=== PATIENT | female | born 1995 | race Caucasian/White ===

== ENCOUNTER 2017-03-16 09:21 | Emergency (ER) | payer BC ==
[2017-03-16 09:40] VITALS: BP 117/71; BMI 29.7
[2017-03-16 10:03] LABS: BILIRUBIN,URINE NEGATIVE (NEGATIVE); BLOOD/HEMOGLOBIN,URINE NEGATIVE (NEGATIVE); GLUCOSE, URINE NEGATIVE (NEGATIVE); KETONES,URINE NEGATIVE (NEGATIVE); LEUKOCYTE ESTERASE ,URINE 1+ (NEGATIVE); NITRITES,URINE NEGATIVE (NEGATIVE); PROTEIN,URINE NEGATIVE (NEGATIVE); UROBILINOGEN,URINE NORMAL (NORMAL)
--- NOTE | 2017-03-16 10:03 | DR.PREG ---
HPI - Time seen Time seen: 10:00 - PCP Primary Care Physician: OUT OF STATE - Chief Complaint Chief Complaint Doctors Comments: Patient presents to the ED with complaint of right side pain and not feeling the baby move in two days. This is her first estimated date of confinement of 25wks; not sure of LMP. Patient denies headache or lower extremity edema. She denies vomiting. She is taking some medication given to her by previous physician but not sure of name. Chief Complaint:: 25 WEEK WITH COMPLAINT OF NOT FEELING BABY MOVE FOR 2 DAY AND PAIN TO RIFHT SIDE AND MIDDLE OF STOMACH Self Treatment fo Chief Complaint: NONE EXCEPT SAW OUT OF TOWN OB 2 DAYS AGO AND EVERYTHING WAS FINE THAT WAS LAST FELT BABY MOVE - Source History Provided: Patient, Family Member - Mode of Arrival Mode of Arrival: Ambulatory - Context : 1 Para: 0 - Timing Onset of Chief Complaint: 03/14/17 Pain: Irregular - Duration Pain Strength: Moderate PMH - PMH Past Medical History: Yes Past Medical History: Anxiety Past Surgical History: Yes Surgical History: Appendectomy, INSOLE PRESSER Surgery, Ortho Surgery - Family History History of Family Medical Conditions: Yes Family Medical History: Diabetes Mellitus, Cancer, Hypertension - Social History Alcohol Use: None Do you use any recreational Drugs:: No Lives With: Significant Other Lives Where: Home - infectious screening In the last 2 months have you had wt loss of >10#?: NO Have you had fever, night sweats or hemotysis?: No Have you traveled outside the country in the last 6 months?: No Isolation: Standard ROS - Review of Systems Constitutional: No Symptoms Reported Eyes: No Symptoms Reported ENTM: No Symptoms Reported Respiratoy: No Symptoms Reported Cardiovascular: No Symptoms Reported Gastrointestinal/Abdominal: No Symptoms Reported Genitourinary: No Symptoms Reported Neurological: No Symptoms Reported Musculoskeletal: No Symptoms Reported Integumentary: No Symptoms Reported Hematologic/Lymphatic: No Symptoms Reported Endocrine: No Symptoms Reported Psychiatric: No Symptoms Reported All Other Systems: Reviewed and Negative PE - Vital Signs Vitals: Temperature 98.3 F Pulse Rate 107 Respiratory Rate 16 Blood Pressure 117/71 O2 Sat by Pulse Oximetry 98 - General Limitations: No Limitations General Appearance: Alert, In No Apparent Distress - Head Head Exam: Normal Inspection, Atraumatic - Eyes Eye exam: Normal Appearance, PERRL, EOMI - ENT ENT Exam: Normal Exam, Normal Oropharynx - Neck Neck Exam: Normal Inspection - Chest Chest Inspection: Normal Inspection - Respiratory Respiratory Exam: Normal Lung Sounds Bilat Respiratory Exam: Bilateral Clear to Auscultation - Cardiovascular Cardiovascular Exam: Regular Rate - Abdominal Exam Abdominal Exam: Normal Inspection Abdominal Tenderness: negative: RUQ, RLQ, LUQ, LLQ, Epigastrium, Suprapubic, Diffuse, Mild, Moderate, Severe, Other - Back Back Exam: Normal Inspection. negative: Tenderness - Extremeties Extremities Exam: Normal Inspection, Full ROM - Neurologic Neurological Exam: Alert, Oriented X3, CN II-XII Intact - Psychiatric Psychiatric Exam: Normal Affect, Normal Mood - Skin Skin Exam: Warm, Dry, Intact ROR - Labs Reviewed Laboratory Results Reviewed?: Yes (uA negative) Result Diagrams: 03/16/17 10:25 03/16/17 10:25 Laboratory: WBC 15.1 X10^3/uL (3.6-10.0) H 03/16/17 10:25 RBC 3.72 X10^6/uL (3.5-5.4) 03/16/17 10:25 Hgb 10.9 g/dL (12.0-16.0) L 03/16/17 10:25 Hct 32.1 % (36.0-47.0) L 03/16/17 10:25 MCV 86.4 fL (80.0-100.0) 03/16/17 10:25 MCH 29.3 pg (27.0-34.0) 03/16/17 10:25 MCHC 33.9 g/dL (33.0-35.0) 03/16/17 10:25 RDW 12.5 % (11.6-16.5) 03/16/17 10:25 Plt Count 231 X10^3/uL (150.0-450.0) 03/16/17 10:25 MPV 9.5 fL (7.4-11.0) 03/16/17 10:25 Neut % 71.0 % (42.0-75.0) 03/16/17 10:25 Lymph % 16.4 % (21.0-51.0) L 03/16/17 10:25 [place] % 10.0 % (0.0-13.0) 03/16/17 10:25 Eos % 2.4 % (0.9-2.9) 03/16/17 10:25 Baso % 0.2 % (0.2-1.0) 03/16/17 10:25 Neut # 10.7 x10^3/uL (2.2-4.8) H 03/16/17 10:25 Lymph # 2.5 X10^3/uL (1.3-2.9) 03/16/17 10:25 [place] # 1.5 x10^3/uL (0.3-0.8) H 03/16/17 10:25 Eos # 0.4 x10^3/uL (0.0-0.2) H 03/16/17 10:25 Baso # 0.0 X10^3/uL (0.0-0.1) 03/16/17 10:25 Absolute Nucleated RBC 0.0 /100WBC 03/16/17 10:25 Sodium 138 mmol/L (136-145) 03/16/17 10:25 Corrected Sodium TNP 03/16/17 10:25 Potassium 3.8 mmol/L (3.5-5.1) 03/16/17 10:25 Chloride 105 mmol/L (98-107) 03/16/17 10:25 Carbon Dioxide 23.1 mmol/L (21-32) 03/16/17 10:25 BUN 4 mg/dL (7-18) L 03/16/17 10:25 Creatinine 0.52 mg/dL (0.55-1.02) L 03/16/17 10:25 Est GFR (MDRD) Af Amer > 60 (>60) 03/16/17 10:25 Est GFR (MDRD) Non-Af > 60 (>60) 03/16/17 10:25 Glucose 79 mg/dL (65-99) 03/16/17 10:25 Calcium 8.4 mg/dL (8.5-10.1) L 03/16/17 10:25 C-Reactive Protein 2.60 mg/L (0-3.0) 03/16/17 10:25 Specimen Type Clean catch urine 03/16/17 09:56 Urine Color Yellow (YELLOW) 03/16/17 09:56 Urine Appearance Clear (CLEAR) 03/16/17 09:56 Urine pH 8.0 (5.0 - 8.0) 03/16/17 09:56 Ur Specific [place] 1.010 (1.000-1.030) 03/16/17 09:56 Urine Protein Negative (NEGATIVE) 03/16/17 09:56 Urine Glucose (UA) Negative (NEGATIVE) 03/16/17 09:56 Urine Ketones Negative (NEGATIVE) 03/16/17 09:56 Urine Occult Blood Negative (NEGATIVE) 03/16/17 09:56 Urine Nitrite Negative (NEGATIVE) 03/16/17 09:56 Urine Bilirubin Negative (NEGATIVE) 03/16/17 09:56 Urine Urobilinogen Normal (NORMAL) 03/16/17 09:56 Ur Leukocyte Esterase 1+ (NEGATIVE) 03/16/17 09:56 Urine RBC 0-2 /HPF (NEGATIVE) 03/16/17 09:56 Urine WBC 0-2 /HPF (NEGATIVE) 03/16/17 09:56 Ur Squamous Epith Cells Negative /HPF (NEGATIVE) 03/16/17 09:56 Urine Bacteria Negative /HPF (NEGATIVE) 03/16/17 09:56 Ur Culture Indicated? No/not indicated 03/16/17 09:56 - XRAY XRAY Interpreted by: Radiologist (OB US: A viable single intrauterine with an averagen US age of 25 weeks 0 dasy with an edtimated date of delivery 06/29/17) - Diagnosis Discharge Problem: Qualifiers: Weeks of gestation: 25 weeks Qualified Code(s): Z3A.25 - 25 weeks gestation of - Discharge Plan Condition: Stable - Follow ups/Referrals Follow ups/Referrals: NFD,None [Primary Care Provider] - 3 days - Instructions
[2017-03-16 10:10] LABS: APPEARANCE,URINE CLEAR (CLEAR); BACTERIA,URINE NEGATIVE /HPF (NEGATIVE); COLOR,URINE YELLOW (YELLOW); RBC,URINE 0-2 /HPF (NEGATIVE); SQUAMOUS EPITHELIAL CELL,UR NEGATIVE /HPF (NEGATIVE)
[2017-03-16 10:47] LABS: BASOPHILS % (AUTO) 0.2 % (0.2-1.0); BLOOD UREA NITROGEN 4 mg/dL (7-18); CALCIUM 8.4 mg/dL (8.5-10.1); CARBON DIOXIDE 23.1 mmol/L (21-32); CHLORIDE 105 mmol/L (98-107); CREATININE 0.52 mg/dL (0.55-1.02); EOSINOPHILS # (AUTO) 0.4 x10^3/uL (0.0-0.2); EOSINOPHILS % (AUTO) 2.4 % (0.9-2.9); HEMATOCRIT 32.1 % (36.0-47.0); HEMOGLOBIN 10.9 g/dL (12.0-16.0); LYMPHOCYTES # (AUTO) 2.5 X10^3/uL (1.3-2.9); LYMPHOCYTES % (AUTO) 16.4 % (21.0-51.0); MEAN CORPUSCULAR HEMOGLOBIN 29.3 pg (27.0-34.0); MEAN CORPUSCULAR HGB CONC 33.9 g/dL (33.0-35.0); MEAN CORPUSCULAR VOLUME 86.4 fL (80.0-100.0); MEAN PLATELET VOLUME 9.5 fL (7.4-11.0); MONOCYTES # (AUTO) 1.5 x10^3/uL (0.3-0.8); NEUTROPHILS # (AUTO) 10.7 x10^3/uL (2.2-4.8); PLATELET COUNT 231 X10^3/uL (150.0-450.0); RED BLOOD COUNT 3.72 X10^6/uL (3.5-5.4); RED CELL DISTRIBUTION WIDTH 12.5 % (11.6-16.5); SODIUM 138 mmol/L (136-145); WHITE BLOOD COUNT 15.1 X10^3/uL (3.6-10.0); eGFR BLACK RACES > 60 (>60); eGFR NON BLACK RACES > 60 (>60)
--- NOTE | 2017-03-16 10:50 | US ---
HISTORY: Abdominal pain, no movement per mother. Study: OB ultrasound greater than 14 weeks Comparison: No priors Technique: Multiple grayscale and color flow Doppler images of the pelvis were obtained with focused evaluation of the fetus. Findings: A viable single intrauterine is identified with heart tones of 150 beats per minute. A reach presentation is observed with a posterior and fundal placenta. Normal amniotic fluid volume is observed. Value Estimated Gestational Age BPD 62.4 mm 25 weeks 2 days HC 231.5 mm 25 weeks 1 day AC 202.9 mm 24 weeks 6 days FL 45.1 mm 24 weeks 6 days Estimated weight is 753 g. This is in the 38th percentile. IMPRESSION: A viable single intrauterine with an average ultrasound age of 25 weeks 0 days correspond t o an estimated date of delivery of 06/29/2017.. Reported By:
== END 2017-03-16 11:18 | disposition home or self-care (01) ==
LOC: ER 09:49
DX: R10.84 Generalized abdominal pain (principal); Z3A.25 25 weeks gestation of pregnancy
CPT/HCPCS: 36415; 76815; 80048; 81001; 85025; 86140; 99282; 99284